=== PATIENT | female | born 1950 | race Caucasian/White ===

== ENCOUNTER → 2016-07-20 | Outpatient (CLI) | payer BC ==
[~2016-07-20] MED LIST: ACT35 PO; AMB10 PO; ASPCH81; ATOR-24 PO; BUPR-79 PO; CALCTAB5 PO; CMD25 PO; LSN25 PO; METO100T44 PO; METO50TA7 PO; PRTUNK PO; UNABLE
--- NOTE | 2016-07-20 11:08 | DIAGNOSTIC IMAGING REPORT ---
THYROID ULTRASONOGRAPHY CLINICAL HISTORY: Multinodular thyroid gland COMPARISON STUDY: 09/02/2015, September 2010. FINDINGS: The right lobe measures 58 x 16 x 14 mm. The left lobe measures 47 x 14 x 13 mm. There is a dominant right lobe nodule which is slightly hypoechoic to thyroid parenchyma. The nodule is circumscribed and wider than tall. The nodule demonstrates peripheral increased vascularity. The nodule measures 18 x 13 x 8 mm. This previously measured 18 x 11 x 9 mm in 2010. There is a hypoechoic wider than tall circumscribed upper pole left lobe nodule measured 5 x 5 x 3 mm. This previously measured 5 x 4 x 2 mm. in 2015. Additional tiny bilateral thyroid nodules are visualized. IMPRESSION: Multinodular thyroid gland. No significant change in the size of the dominant 18 mm right lobe thyroid nodule Electronically signed by: Andre Banda M.D. 07/20/2016 11:06 AM Dictated Date/Time: 07/20/2016 11:00 AM
== END | disposition home or self-care (01) ==
LOC: C.ULTRBC 10:14
PROVIDERS: ATTEND Internal Medicine Endocrinology, Diabetes & Metabolism
DX: E04.2 Nontoxic multinodular goiter (principal)

== ENCOUNTER → 2016-08-12 | Outpatient (CLI) | payer BC ==
[~2016-08-12] MED LIST changes: -METO100T44 PO; +METO1TAB69 PO
== END | disposition home or self-care (01) ==
LOC: C.MAMM 13:44
PROVIDERS: ATTEND Nurse Practitioner Family
DX: Z13.820 Encounter for screening for osteoporosis (principal); M85.851 Other specified disorders of bone density and structure, right thigh; M85.852 Other specified disorders of bone density and structure, left thigh

== ENCOUNTER → 2016-09-01 | Outpatient (CLI) | payer BC ==
--- NOTE | 2016-09-01 15:37 | MAMMOGRAPHY REPORT ---
BILATERAL DIGITAL SCREENING MAMMOGRAM WITH CAD: 09/01/2016 TECHNIQUE: Current study was also evaluated with a Computer Aided Detection (CAD) system. Bilateral CC and MLO views were obtained. COMPARISON: Comparison is made to exams dated: 09/01/2015 mammogram, 07/31/2014 mammogram, 05/11/2012 m ammogram, 02/09/2010 mammogram, 12/23/2008 mammogram - [facility], and 12/19/2007. BREAST COMPOSITION: The tissue of both breasts is heterogeneously dense, which may obscure small mas ses. FINDINGS: No suspicious masses, calcifications, or areas of architectural distortion are noted in ei ther breast. There has been no significant interval change compared to prior exams. IMPRESSION: ACR BI-RADS CATEGORY 1: NEGATIVE There is no mammographic evidence of malignancy. A 1 year screening mammogram is recommended. The pa tient will receive written notification of the results. Approximately 10% of breast cancers are not detected with mammography. A negative mammographic report should not delay biopsy if a clinically suggestive mass is present. Marisabel Temple M.D. ah/:09/01/2016 12:20:25 Seam Stayer: Amberly GONZALEZ(Juancarlos)(M), [facility] letter sent: Normal 1/2 BI-RADS Code: ACR BI-RADS Category 1: Negative
== END | disposition home or self-care (01) ==
LOC: C.MAMM 11:19
PROVIDERS: ATTEND Obstetrics & Gynecology
DX: Z12.31 Encounter for screening mammogram for malignant neoplasm of breast (principal)

== ENCOUNTER → 2016-09-21 | Outpatient (CLI) | payer BC ==
--- NOTE | 2016-09-21 08:42 | DIAGNOSTIC IMAGING REPORT ---
BILIARY ULTRASOUND CLINICAL HISTORY: Abnormal liver function tests COMPARISON STUDY: No previous studies for comparison. FINDINGS: The pancreas appears normal as visualized. The liver is slightly heterogeneous in echotexture without evidence for focal mass. There is no ductal dilatation. The common bile duct measures 4 mm. The gallbladder appears sonographically normal. There is no right-sided hydronephrosis. There are several renal cysts the largest of which measures 13 mm. IMPRESSION: 1. Ultrasonographically normal gallbladder and pancreas 2. No evidence of ductal dilatation 3. Slight hepatic heterogeneity without evidence of focal mass Electronically signed by: Andre Banda M.D. 09/21/2016 8:40 AM Dictated Date/Time: 09/21/2016 8:39 AM
[2016-09-21 11:20] LABS: BLOOD UREA NITROGEN 26 mg/dl (7-18); CARBON DIOXIDE 31 mmol/L (21-32); CHLORIDE 105 mmol/L (98-107); GLUCOSE 99 mg/dl (70-99); POTASSIUM 4.4 mmol/L (3.5-5.1); SODIUM 141 mmol/L (136-145)
== END | disposition home or self-care (01) ==
LOC: C.ULTRBC 07:17
PROVIDERS: ATTEND Nurse Practitioner Family
DX: Z87.898 Personal history of other specified conditions (principal); R89.9 Unspecified abnormal finding in specimens from other organs, systems and tissues

== ENCOUNTER → 2016-10-18 | Outpatient (CLI) | payer BC ==
[~2016-10-18] MED LIST changes: +SINCALIDE INJ 1.1 MCG in SODIUM CHLORIDE 0.9% 100ML 100 ML IV SCH
--- NOTE | 2016-10-18 12:57 | DIAGNOSTIC IMAGING REPORT ---
NUCLEAR MEDICINE HEPATOBILIARY SCAN WITH EJECTION FRACTION ANALYSIS CLINICAL HISTORY: PERSONAL HX OF OTHER SPECIFIED CONDITIONS, abnormal liver function tests COMPARISON STUDY: Biliary ultrasound dated 09/21/2016 FINDINGS: The patient was injected with 5 mCi of technetium 99m Choletec. Hepatic excretion appeared unremarkable. The gallbladder was first visualized on the 30 minute image. There is normal passage of activity into small bowel. At 1 hour, the patient was administered 1.1 mcg of sincalide utilizing a 30 minute infusion. The gallbladder ejection fraction was normal measuring 89%. IMPRESSION: Normal study. No evidence of cystic duct obstruction. Normal gallbladder ejection fraction of 89%. Electronically signed by: Andre Banda M.D. 10/18/2016 12:56 PM Dictated Date/Time: 10/18/2016 12:54 PM
== END | disposition home or self-care (01) ==
LOC: C.NUCL 09:57
PROVIDERS: ATTEND Nurse Practitioner Family
DX: R89.9 Unspecified abnormal finding in specimens from other organs, systems and tissues (principal); Z87.898 Personal history of other specified conditions

== ENCOUNTER → 2017-04-25 | Outpatient (CLI) | payer BC ==
[~2017-04-25] MED LIST changes: +GADAVIST IV PRN; +METO100T44 PO; -METO1TAB69 PO; -METO50TA7 PO; +METO50TA8 PO; -SINCALIDE INJ 1.1 MCG in SODIUM CHLORIDE 0.9% 100ML 100 ML IV SCH
--- NOTE | 2017-04-25 10:57 | DIAGNOSTIC IMAGING REPORT ---
MRI OF THE BRAIN WITHOUT AND WITH IV CONTRAST CLINICAL HISTORY: Stroke. Right facial numbness. Right retro-orbital pain. COMPARISON STUDY: MRI the brain dated 07/28/2010 TECHNIQUE: MRI of the brain was performed from the vertex to the skull base utilizing various T1 and T2 weighted sequences. Following the IV administration of 5 mL of Gadavist contrast, additional enhanced images were obtained. FINDINGS: Sagittal T1, axial diffusion, proton density and T2 weighted axial, coronal FLAIR, and pre and post axial T1-weighted images were acquired. These were supplemented with post gadolinium coronal T1 weighted images. No intra or extra-axial mass lesions are visualized. Axial diffusion-weighted images reveal no evidence of acute or subacute infarction. There is no hydrocephalus. There is a cavum septa pellucida and cavum vergae. Proton density T2-weighted and FLAIR images reveal minimal scattered foci of increased T2 signal within the white matter, likely on a small vessel basis. There is an old tiny infarct involving the right medulla. There are no abnormal flow voids. There is no evidence of pathologic enhancement. IMPRESSION: 1. No acute intracranial findings 2. No evidence of intracranial mass 3. No evidence of acute or subacute infarction Electronically signed by: Andre Banda M.D. 04/25/2017 10:56 AM Dictated Date/Time: 04/25/2017 10:53 AM
--- NOTE | 2017-04-25 11:16 | DIAGNOSTIC IMAGING REPORT ---
MR ANGIOGRAPHY OF THE [place] OF [place] NO CONTRAST CLINICAL HISTORY: HX OF STROKE,BRAIN TIA COMPARISON STUDY: July 2010 A 3-D [id number] MR angiographic sequence of the [place] was performed. Both the source and projection images were reviewed. There is no evidence of major intracranial branch occlusion. There is no evidence of intracranial stenosis. There are no lesions suspicious for aneurysm. IMPRESSION: Unremarkable MR angiography of the [place]. Electronically signed by: Andre Banda M.D. 04/25/2017 11:15 AM Dictated Date/Time: 04/25/2017 11:13 AM
== END | disposition home or self-care (01) ==
LOC: C.MRI 09:57
PROVIDERS: ATTEND Nurse Practitioner Family
DX: G45.9 Transient cerebral ischemic attack, unspecified (principal); Z86.73 Personal history of transient ischemic attack (TIA), and cerebral infarction without residual deficits